=== PATIENT | female | born 1995 | race American Indian/Alaskan Native ===

== ENCOUNTER 2018-11-13 08:54 | Emergency (ER) | payer BC ==
[2018-11-13 09:09] VITALS: BP 109/72
[2018-11-13] MEDS ORDERED: DECADRON PO ONE (10:13)
--- NOTE | 2018-11-13 10:21 | Emergency Department Report ---
ED ENT HPI - General Chief complaint: Sore Throat Stated complaint: SORE/SWOLLEN THROAT Time Seen by Provider: 11/13/18 09:46 Source: patient Mode of arrival: Ambulatory Limitations: No Limitations - History of Present Illness Initial comments: History of female. She will morning with a sore throat sensation of swelling to the face and tongue. Her grandmother gave her 5 mg of prednisone and and Motrin because Ms. Warner felt feverish to the grandmother's touch. No temperature was actually taken. Because her symptoms did not want 100% resolved. She decided to come to the emergency department for for evaluation and treatment options She decided to emergency department for further evaluation and treatment options. She reports no change in her voice. No cough, congestion, chest pain, palpitations, hemoptysis, hematemesis, hematochezia complaint: sore throat -: hour(s) (sore throat started this morning) Location: throat Quality: dull Consistency: constant Improves with: none Worsens with: none Associated Symptoms: pain with swallowing, sore throat. denies: cough, gum swelling, rhinorrhea - Related Data Previous Rx's Medication Instructions Recorded Last Taken Type Amoxicillin [Amoxicillin TAB] 875 mg PO BID #20 tablet 03/17/16 Unknown Rx Lidocaine Viscous 2% 15 ml MM TID #100 ml 03/17/16 Unknown Rx Chlorhexidine Mouthwash [Peridex] 15 ml MM BID #1 bottle 11/13/18 Unknown Rx Lidocaine Viscous 2% 5 ml MM Q3H PRN #120 udc 11/13/18 Unknown Rx Allergies Allergy/AdvReac Type Severity Reaction Status Date / Time griseofulvin Allergy Severe Unknown Verified 11/13/18 09:46 clotrimazole Allergy Rash Verified 11/13/18 09:46 ED Dental HPI - General Chief complaint: Sore Throat Stated complaint: SORE/SWOLLEN THROAT Time Seen by Provider: 11/13/18 09:46 Source: patient Mode of arrival: Ambulatory Limitations: No Limitations - Related Data Previous Rx's Medication Instructions Recorded Last Taken Type Amoxicillin [Amoxicillin TAB] 875 mg PO BID #20 tablet 03/17/16 Unknown Rx Lidocaine Viscous 2% 15 ml MM TID #100 ml 03/17/16 Unknown Rx Chlorhexidine Mouthwash [Peridex] 15 ml MM BID #1 bottle 11/13/18 Unknown Rx Lidocaine Viscous 2% 5 ml MM Q3H PRN #120 udc 11/13/18 Unknown Rx Allergies Allergy/AdvReac Type Severity Reaction Status Date / Time griseofulvin Allergy Severe Unknown Verified 11/13/18 09:46 clotrimazole Allergy Rash Verified 11/13/18 09:46 ED Review of Systems ROS: Stated complaint: SORE/SWOLLEN THROAT Other details as noted in HPI Comment: All other systems reviewed and negative ED Past Medical Hx - Past Medical History Previous Medical History?: No - Surgical History Past Surgical History?: No - Social History Smoking Status: Never Smoker Substance Use Type: None - Medications Home Medications: Home Medications Medication Instructions Recorded Confirmed Last Taken Type Amoxicillin [Amoxicillin TAB] 875 mg PO BID #20 tablet 03/17/16 Unknown Rx Lidocaine Viscous 2% 15 ml MM TID #100 ml 03/17/16 Unknown Rx Chlorhexidine Mouthwash [Peridex] 15 ml MM BID #1 bottle 11/13/18 Unknown Rx Lidocaine Viscous 2% 5 ml MM Q3H PRN #120 udc 11/13/18 Unknown Rx ED Physical Exam - General Limitations: No Limitations General appearance: alert, in no apparent distress - Head Head exam: Present: atraumatic, normocephalic - Eye Eye exam: Present: normal appearance - ENT ENT exam: Present: mucous membranes moist, other (tonsils bilaterally. No exudate noted. Tongue midline. Speech is normal. Patient is able to swallow. No foreign bodies.) - Neck Neck exam: Present: normal inspection. Absent: meningismus, lymphadenopathy (didn't get tenderness to the tonsillar nodes), thyromegaly - Respiratory Respiratory exam: Present: normal lung sounds bilaterally. Absent: respiratory distress, wheezes, rales, rhonchi - Cardiovascular Cardiovascular Exam: Present: regular rate, normal rhythm. Absent: systolic murmur, diastolic murmur, rubs, gallop - GI/Abdominal GI/Abdominal exam: Present: soft, normal bowel sounds. Absent: tenderness, organomegaly - Extremities Exam Extremities exam: Present: normal inspection - Back Exam Back exam: Present: normal inspection - Neurological Exam Neurological exam: Present: alert, oriented X3 - Psychiatric Psychiatric exam: Present: normal affect, normal mood - Skin Skin exam: Present: warm, dry, intact, normal color. Absent: rash ED Course Vital Signs 11/13/18 08:58 Temperature 98.7 F Pulse Rate 87 Respiratory 18 Rate Blood Pressure 109/72 O2 Sat by Pulse 100 Oximetry ED Medical Decision Making - Medical Decision Making 23-year-old female with a sore throat. Strep test is negative. She is awake, alert and oriented, no respiratory distress. No lymphangitis noted. Critical care attestation.: If time is entered above; I have spent that time in minutes in the direct care of this critically ill patient, excluding procedure time. ED Disposition Clinical Impression: Pharyngitis Disposition: DC- TO HOME OR SELFCARE Is pt being admited?: No Does the pt Need Aspirin: No Condition: Stable Instructions: Pharyngitis (ED) Additional Instructions: Your strep test was negative Referrals: ISAMAR RYAN MD [Primary Care Provider] - 2-3 Days
== END 2018-11-13 10:41 | disposition home or self-care (01) ==
LOC: ED 08:54
DX: J02.9 Acute pharyngitis, unspecified (principal); R22.0 Localized swelling, mass and lump, head; Z88.1 Allergy status to other antibiotic agents; Z88.3 Allergy status to other anti-infective agents
CPT/HCPCS: 87116; 87430; 99283; J1100